=== PATIENT | male | born 1965 | race Caucasian/White ===

== ENCOUNTER 2019-06-08 11:31 | Outpatient (RCR) | payer OTHER, MEDICAID, SELFPAY ==
[2019-02-21 09:17] VITALS: BMI 25.2
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
--- NOTE | 2019-06-08 14:53 | HP.OTFCE.D ---
FCE D/C Summary - Discharge ENEDINA SMITH TIESHA was seen for a one time visit for an FCE on 06/08/19 and is discharged.
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
== END 2019-06-08 19:00 | disposition home or self-care (01) ==
LOC: OT 11:31
DX: R26.81 Unsteadiness on feet (principal); R29.6 Repeated falls